=== PATIENT | female | born 1980 | race African-American/Black ===

== ENCOUNTER → 2019-12-23 | Outpatient (CLI) | payer OTHER ==
--- NOTE | 2019-12-23 17:06 | RADIOLOGY REPORT (SQ) ---
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 TECHNIQUE: Post IV contrasted scanning from skull base through lung apices with review of bone, soft tissue and lung windows. Reconstructed coronal and sagittal MPR images reviewed. All images stored on PACS. All CT scanners at this facility use dose modulation, iterative reconstruction, and/or weight based d osing when appropriate to reduce radiation dose to as low as reasonably achievable (ALARA). [facility]: Dose Right [facility]: CareDose [facility]: Dose Right [facility]: Teradose 4D [facility]: CheckInOn.Me CONTRAST TYPE AND DOSE: contrast/concentration: Isovue 350.00 mmol/ml; Total Contrast Delivered: 75. 0 ml; Total Saline Delivered: 40.0 ml RENAL FUNCTION: None required. The patient is less than 50 years old. RADIATION DOSE: 24 mGy LIMITATIONS: None. FINDINGS: Massive enlargement of the thyroid is present. The left lobe thyroid measures 16 cm craniocaudad by 8.3 cm AP by 6 cm transverse. In the left neck, the left lobe thyroid is seen from the C2 level down through T4. Significant extension through the thoracic inlet into the upper mediastinum, left lobe thyroid extends inferiorly down to the left main stem bronchus. Left lobe thyroid displaces the trachea and esophagus to the right. Right lobe thyroid is 7 cm craniocaudad by 3.3 cm AP by 3.3 cm transverse. There is thyroid tissue between the clavicle and great vessels to the right of midline. It is diffic ult to discern whether this tissue arises from the inferior right lobe were inferior left lobe thyroi d. This is best shown on axial images 75-82. The thyroid is diffusely heterogeneous. No gross calcifications. SKULL BASE: Intact. MAJOR SALIVARY GLANDS: No solid or cystic masses. No inflammatory changes. LYMPHADENOPATHY: No adenopathy. MUCOSAL MASSES OR ASYMMETRY: No mucosal masses or asymmetry. LARYNX/CORDS: No abnormal findings. VASCULAR STRUCTURES: The major vessels are patent. LUNG APICES: Clear. BONES: Intact. PARANASAL SINUSES: Clear. OTHER: No other significant finding. IMPRESSION: Massive thyromegaly, left lobe thyroid extends from the level of C2 in the neck down thr ough the thoracic inlet and into the upper mediastinum. Enlarged right lobe thyroid. TECHNICAL DOCUMENTATION: JOB ID: [id number] Quality ID # [id number]: Final reports with documentation of one or more dose reduction techniques (e.g., Au tomated exposure control, adjustment of the mA and/or kV according to patient size, use of iterative reconstruction technique) 2010 [employer]- All Rights Reserved Reading location - IP/workstation name: [facility]Vern
== END ==
LOC: RAD 15:10
PROVIDERS: ATTEND Internal Medicine Endocrinology, Diabetes & Metabolism
DX: E04.2 Nontoxic multinodular goiter (principal)
CPT/HCPCS: 70491